=== PATIENT | female | born 1965 | race Caucasian/White ===

== ENCOUNTER → 2017-06-03 08:33 | Outpatient (CLI) | payer BC ==
[2017-06-03 09:15] LABS: ANION GAP 13.4 mmol/L (8-16); CALCIUM 8.9 mg/dL (8.5-10.1); CARBON DIOXIDE 27.6 mmol/L (21.0-32.0); CREATININE - SERUM 0.9 mg/dL (0.6-1.3)
[2017-06-03 12:50] LABS: ALBUMIN 3.9 g/dL (3.4-5.0); BILIRUBIN - DIRECT 0.06 mg/dL (0.00-0.30); BILIRUBIN - INDIRECT 0.27 mg/dL (0.00-1.00); BILIRUBIN - TOTAL 0.33 mg/dL (0.2-1.3); PROTEIN - SERUM 7.9 g/dL (6.4-8.2)
[2017-06-03 14:16] LABS: BASOPHILS 0.5 % (0-2); EOSINOPHILS 0.6 % (0-7); HEMATOCRIT 42.2 % (36.0-48.0); IMMATURE GRANULOCYTES 0.2 % (0-5); LYMPHOCYTES 34.5 % (15-50); MCH 31.1 pg (26.0-34.0); MCHC 33.2 g/dL (31.0-37.0); MCV 93.8 fL (80.0-100.0); MEAN PLATELET VOLUME 10.8 fL (7.4-10.4); NEUTROPHILS 59.2 % (40-80); PLATELET COUNT 270 10x3/uL (130-400); RDW 13.2 % (11.5-14.5); WBC 6.6 10x3/uL (4.8-10.8)
== END | disposition home or self-care (01) ==
LOC: D.US 08:33
PROVIDERS: Surgery
DX: R10.11 Right upper quadrant pain (principal)

== ENCOUNTER → 2017-06-10 08:35 | Outpatient (CLI) | payer BC | END | disposition home or self-care (01) | LOC: D.NM 08:35 | DX: R10.11 Right upper quadrant pain (principal); R11.2 Nausea with vomiting, unspecified ==